=== PATIENT | female | born 1985 | race Caucasian/White ===

== ENCOUNTER 2024-02-22 12:50 | Inpatient (IN) ==
[2024-02-22] MEDS ORDERED: LIDOCAINE 1% LOCAL 20 ML VIAL INFIL PRN (16:58)
[2024-02-22] MEDS ORDERED: PENICILLIN GK 6 MU in SODIUM CHLORIDE 0.9% 250 ML IV STA (16:58)
[2024-02-22] MEDS ORDERED: VANCOMYCIN CONSULT ACTIVE PRN (17:17)
[2024-02-22 17:24] LABS: Hematocrit (blood only) 34.9 % (37.0-47.0); Hemoglobin 11.6 g/dl (12.0-16.0); Mean Corpuscular Hemoglobin 28.4 pg (25.0-34.0); Mean Corpuscular Hgb Conc 33.2 g/dL (32.0-36.0); Mean Corpuscular Volume 85.5 fL (80.0-100.0); Mean Platelet Volume 9.2 fL (9.4-12.4); Platelet Count 265 K/uL (130-400); RDW Coefficient of Variation 13.9 % (11.5-14.5); Red Blood Count 4.08 M/uL (4.20-5.40); White Blood Count 14.35 K/ul (4.8-10.8)
[2024-02-22] MEDS: VANCOMYCIN HCL 1,000 MG/270 ML BAG IV STA (18:23)
--- NOTE | 2024-02-22 18:57 | History & Physical Report ---
Date of Service February 22, 2024 Assessment & Plan (1) Normal labor and delivery: Plan: Spontaneous labor, will manage expectantly. Epidural if requested. Admission and Anticipated Discharge Date Admission Date: February 22, 2024 History of Present Illness Primary Care Provider: [facility] Delayed documentation. 38yo at 40w3d with SIUP, admitted with contractions. Patient's c/b AMA, nulliparity, Rh negative, GBS positive. No LOF, no VB, good FM. Patient has a childhood allergy to penicillin which "may have been a rash," per patient's mom in the room. She mentions they are not even sure if the allergy was to penicillin or other drugs given concurrently. They were therefore advised that PCN is the recommended treatment for her GBS. They decline to accept any PCN, therefore vancomycin will be utilized. Allergies Allergy/AdvReac Type Severity Reaction Status Date / Time latex Allergy Mild Rash Verified 02/22/24 14:35 Penicillins Allergy Mild Rash Verified 02/22/24 14:34 Home Medications Medication Instructions Recorded Confirmed Type breast pump #1 ea 01/02/24 02/21/24 Rx aspirin 81 mg capsule 81 mg PO DAILY 02/22/24 02/22/24 History cetirizine 10 mg tablet (Zyrtec) 10 mg PO DAILY 02/22/24 02/22/24 History vits no.124-ferrous fum 1 tab PO DAILY 02/22/24 02/22/24 History 27 mg iron-folic acid 800 mcg tablet ( Vitamin) Patient History Medical History (Updated 02/22/24 @ 18:57 by Terra Welch MD) Chicken pox HSV-1 (herpes simplex virus 1) infection Oral Seasonal allergies Surgical History S/P wisdom tooth extraction Family History Grandmother (Maternal) Colorectal cancer Uncle Lymphoma Father Hypertension Denies family history of Ovarian cancer Breast cancer Social History Smoking Status: Never smoker Do You Dip or Chew Tobacco: No; Hx Alcohol Use: No Hx Substance Use: No Preferred Language: Vietnamese Communication Ability: Effective Matcher Offbearer Required: No Beliefs That Will Affect Care: None marital status: marital status details: Abhay Kendall (29) [phone] Current Living Situation: Spouse Current Living Situation Comment: Lives with current occupational status: employed current occupation: wagon driver part-time Feels Safe at Home: Yes Physical Exam Genitourinary: /-2 with intact bulging membranes, vtx presentation. FHT Cat 1 [place] Q3m Results & Data Vital Signs (Past 12 Hours) Vital Signs Temp Pulse Resp BP 02/22/24 16:59 97.9 F 82 18 110/69 02/22/24 15:26 85 131/77 02/22/24 15:16 18 02/22/24 15:16 97.9 F 18 02/22/24 13:26 98.2 F 16 02/22/24 13:17 93 H 111/68 Coding Level of Care Code None Diagnoses Normal labor and delivery O80
[2024-02-22] MEDS: SODIUM CHLORIDE 0.9% 1,000 ML IV SCH (19:06)
[2024-02-22] MEDS ORDERED: fentANYL 2 MCG/ML BUPIVacaine 0.125%-NSS 100ML BAG EPI PRN (19:21)
[2024-02-22] MEDS ORDERED: ONDANSETRON INJ 2 MG/ML 2 ML VIAL IV PRN (19:21)
[2024-02-22] MEDS ORDERED: LIDOCAINE 2%/EPINEPHRINE 1:200,000 20 ML PF EPI STA (19:21)
[2024-02-22] MEDS ORDERED: LIDOCAINE 2% MPF LOCAL 5 ML VIAL EPI PRN (19:21)
[2024-02-22] MEDS ORDERED: BUPIVACAINE 0.25% PF 30 ML VIAL EPI STA (19:21)
[2024-02-22] MEDS ORDERED: fentaNYL citrate PF 100 MCG/2 ML VIAL EPI STA (19:21)
[2024-02-22] MEDS ORDERED: fentaNYL citrate PF 100 MCG/2 ML VIAL EPI PRN (19:21)
[2024-02-22] MEDS ORDERED: BUPIVACAINE 0.25% PF 30 ML VIAL EPI PRN (19:21)
[2024-02-22] MEDS ORDERED: ROPIVACAINE 0.5% PF 5 MG/ML 20 ML VIAL EPI PRN (19:21)
[2024-02-22] MEDS ORDERED: diphenhydrAMINE 50 MG/ML VIAL IV PRN (19:21)
[2024-02-22] MEDS ORDERED: SODIUM CHLORIDE 0.9% PF INJ 10 ML VIAL EPI PRN (19:21)
[2024-02-22] MEDS ORDERED: SODIUM CHLORIDE 0.9% PF INJ 10 ML VIAL EPI STA (19:21)
[2024-02-22] MEDS ORDERED: ePHEDrine sulfate 50 MG/ML AMP IV PRN (19:21)
[2024-02-22] MEDS ORDERED: NALBUPHINE HCL INJ 10 MG/ML AMP IV PRN (19:21)
--- NOTE | 2024-02-22 19:25 | Anesthesiology Consultation ---
Date of Service February 22, 2024 Assessment & Plan (1) Encounter for pre-operative examination: Chart Review Chart Review: Patient NOT seen in Pre Admission Testing and Acceptable Risk for Labor Epidural Consults Requested none History Height/Weight Height: 5 ft 6 in Weight: 80.286 kg Allergies Allergy/AdvReac Type Severity Reaction Status Date / Time latex Allergy Mild Rash Verified 02/22/24 14:35 Penicillins Allergy Mild Rash Verified 02/22/24 14:34 Medications Home Medications Medication Instructions Recorded Confirmed Last Taken breast pump #1 ea 01/02/24 02/21/24 Unknown aspirin 81 mg capsule 81 mg PO DAILY 02/22/24 02/22/24 02/21/24 cetirizine 10 mg tablet (Zyrtec) 10 mg PO DAILY 02/22/24 02/22/24 02/21/24 vits no.124-ferrous fum 1 tab PO DAILY 02/22/24 02/22/24 02/22/24 27 mg iron-folic acid 800 mcg tablet ( Vitamin) Active Medications Generic Name Dose Route Start Last Admin Trade Name Freq PRN Reason Stop Dose Admin Sodium Chloride 1,000 mls @ 80 mls/hr 02/22/24 19:15 02/22/24 19:41 Nss IV 02/23/24 19:14 80 mls/hr .[id number] ROLLY Infusion Past Medical History Medical History Encounter for pre-operative examination Chicken pox HSV-1 (herpes simplex virus 1) infection Oral Seasonal allergies Exercise / Class Metabolic Activity II 4-5 Yardwork/Stairs/Walk up hill Past Family History Family History Grandmother (Maternal) Colorectal cancer Uncle Lymphoma Father Hypertension Denies family history of Ovarian cancer Breast cancer Past Surgical History Surgical History S/P wisdom tooth extraction Past Anesthesia History No Hx of Anesthesia Complications and No Family Hx of Anesthesia Complications History of PONV No Hx of PONV and No Hx of Motion Sickness Social History Smoking Status: Never smoker Do You Dip or Chew Tobacco: No Hx Alcohol Use: No Hx Substance Use: No Physical Exam Vital Signs Last Vital Signs Temp 36.7 C 02/22/24 19:06 Pulse 107 H 02/22/24 19:47 Resp 18 02/22/24 19:06 BP 116/74 02/22/24 19:44 Pulse Ox 94 02/22/24 19:47 Testing Laboratory Results 02/22/24 17:03
--- OUTSIDE RECORDS SUMMARY | 2024-02-22 19:31 | External Medical Summary | Summary of Care ---
Author Name Unknown Organization [facility] Address [address] [place] [address] Phone [phone] Care Team Providers Care Center Medical Director Name Role Phone Simin Osman PA-C Primary Care Provide r Reason for Visit * Reason Onset Date Comments Allergy Serum 02/21/2024 Encounter Details Date Type Department Care Team (Late st Contact Info) Description 02/21/2024 7:30 AM EST Nurse Only Allergy/Immunology [facility] [place] [address] [place] [address] Joan, Nurse Allergy Scenery [address] [place] [address] Allergy Serum Allergies No known active allergiesdocumented as of this encounter (statuses as of 02/21/2024) Medications Fluticasone Propionate 50 MCG/ACT Nasal Suspension Administer 1 [place] into nostril 2 times a day. 15.8 mL 6 1 Active Cetirizine HCl 10 MG Oral Tablet (ZyrTEC) Take 1 Tab by mouth daily. 1 Active 6.75-0.2 MG Oral Tablet Take by mouth. Act azra documented as of this encounter (statuses as of 02/21/2024) Active Problems Problem Noted Date Diagnosed Date Deviated nasal septum 02/05/2020 Allergic rhinitis documented as of this encounter (statuses as of 02/21/2024) Social History Tobacco Use Types Packs/Day Years Used Date Smoking Tobacco: Never Smokeless Tobacco: Never Comments:No passive smoke ex posure Alcohol Use Standard Drinks/Week Comments Never 0 (1 standard drink = 0.6 oz pur e alcohol) AUDIT-C Answer Date Recorded Frequency of Alcohol Consumption Never 11/28/2019 Average Number of Drinks Not on file 020 Frequency of Binge Drinking Not on file 10/2019 Comments Unknown Sex and Gender Information Value Date Recorded Sex Assigned at Not on file Legal Sex Female 9:00 AM EDT Gender Identity Not on file Sexual Orientation Not on file documented as of this encounter Progress Notes * Aster Hampton LPN - 02/21/2024 1:13 PM EST The pt has been properly identified by confirmation of name and date of . AIT serum(s) prepared per Dr Mota's prescription. Aster Hampton LPN 02/21/2024 documented in this encounter Plan of Treatment Upcoming Encounters Date Type Department Care Team (Late st Contact Info) Description 12/19/2024 11:00 AM EDT Office Visit Allergy/Immunology [facility] [place] [address] [facility] [place] [address] Linsey Fierro PA-C [address] [facility] [place] [address] Scheduled Orders Name Type Priority Associated Diagnoses Orde r Schedule [facility] Procedures Routine Allergic rhinitis due to pollen, unspecified seasonality Ordered: 02/21/2024 Health Maintenance Due Date Last Done Comments Diabetes Screening 1987 Depression Screening 1999 HIV Screening 07/12/2002 Hepatitis C Screening 07/12/2005 DTap/Tdap Vaccines (1 - Tdap) 07/12/2006 Hepatitis B Vaccine (1 of 3 - 19+ 3-dose series) 07/12/2006 Pap Smear 07/12/2008 Cervical Cancer Screening 07/12/2017 HPV/Co-Test 07/12/2017 COVID-19 Vaccine ( season) 2023 01/12/2023, 12/03/2021, 06/25/2021, Additional history exists Influenza Vaccine (FLU shot) Completed 11/22/2023, 12/10/2020 HPV (Gardasil) Vaccine Aged Out No lo nger eligible based on patient's age to complete this topic MENINGOCOCCAL (MENACTRA/MENVEO) Aged Out No longer eligible based on patient's age to complete this topic Pneumococcal Vaccine: Pediatrics (0 to 5 Years) and At-Risk Patients (6 to 18 Years and 19+ Years) Aged Out No longer eligib le based on patient's age to complete this topic documented as of this encounter Medical Devices Not on filedocumented as of this encounter Visit Diagnoses Diagnosis Allergic rhinitis due to pollen, unspecified seasonality- Primary documented in this encounter Care Teams Center Medical Director Relationship Specialty Start Date End Date Simin Osman PA-C [address] [place] [address] PCP - General Physician Oil Distributor Tender 11/03/19 documented as of this encounter
[2024-02-22] MEDS: LIDOCAINE 2%/EPINEPHRINE 1:200,000 20 ML PF ONE (19:51)
[2024-02-22] MEDS: BUPIVACAINE 0.25% PF 30 ML VIAL ONE (19:51)
[2024-02-22] MEDS: fentaNYL citrate PF 100 MCG/2 ML VIAL ONE (19:51)
[2024-02-22] MEDS: fentANYL 2 MCG/ML BUPIVacaine 0.125%-NSS 100ML BAG ONE (19:52)
[2024-02-22] MEDS ORDERED: PENICILLIN GK 3 MU in DEXTROSE 5% 100 ML IV PRN (19:58)
[2024-02-22] MEDS: SODIUM CHLORIDE 0.9% PF INJ 10 ML VIAL ONE (20:40)
[2024-02-22] MEDS: ePHEDrine sulfate 50 MG/ML AMP ONE (20:40)
[2024-02-23] MEDS: OXYTOCIN 30 UNITS/NSS 30 UNITS/500 ML BAG IV PRN (00:56)
--- NOTE | 2024-02-23 01:10 | Delivery Summary ---
Vaginal Delivery Summary Date of Service February 23, 2024 Vaginal Delivery Summary DIAGNOSES: 1. Malin intrauterine at 40w5d gestation. 2. Spontaneous onset of labor. 3. Group B Streptococcus Pos, treated with Vanco. PROCEDURE: Spontaneous vaginal delivery and repair of second degre laceration. SURGEON: Terra Welch MD. STAFFING ACCOUNT MANAGER: None. QUANTITATIVE BLOOD LOSS: 353 mL. COMPLICATIONS: None. PLACENTA: Spontaneous and intact with a 3-vessel cord. DISPOSITION: Stable to labor and delivery. DESCRIPTION: The patient pushed well and brought the head to in DOA position. The infant's head was allowed to deliver with contraction force and no further active pushing, with the perineum protected during this time. There was one nuchal cord reduced on the perineum. The shoulders and body delivered without any difficulty, and the infant was placed on the maternal abdomen. It was vigorous and moving all extremities, and making respiratory efforts. The cord was doubly clamped by the MD and then cut by the FOB. The placenta delivered spontaneously and was noted to be intact and with a 3VC. The cervix, vagina and perineum were examined and were found to have a second degree laceration which was repaired in the usual manner with vicryl suture, including two crown stitches to rebuild the perineal body. The fundus was firm and lochia minimal immediately after delivery. [facility] Vaginal Delivery Charge Vaginal Delivery Codes: 06121 global code for the antepartum, delivery, and post-
[2024-02-23] MEDS ORDERED: OXYTOCIN 30 UNITS/NSS 30 UNITS/500 ML BAG IV PRN (02:14)
[2024-02-23] MEDS ORDERED: ACETAMINOPHEN 325 MG TAB PO PRN (02:14)
[2024-02-23] MEDS ORDERED: HYDROCORTISONE ACETATE 25 MG SUPP PR PRN (02:14)
[2024-02-23] MEDS ORDERED: oxyCODONE/ACETAMINOPHEN 5mg/325mg TAB PO PRN (02:14)
[2024-02-23] MEDS: BENZOCAINE 20% SPRY 85 APPLN/85 GM CAN EXT PRN (03:23)
[2024-02-23] MEDS ORDERED: VANCOMYCIN HCL 1,000 MG/270 ML BAG IV PRN (04:17)
[2024-02-23] MEDS: DIPHTHER/TETAN/PERTUS Vaccine (Tdap, Adol/Adult) 0.5mL IM ONE (04:29)
--- NOTE | 2024-02-23 07:48 | Anesthesia Procedure Note ---
Date of Service February 23, 2024 Anesthesia Post Epidural Note Vital Signs Vital Signs: Temp Pulse Resp BP Pulse Ox O2 Del Method 36.9 C 82 16 102/67 98 Room Air 02/23/24 07:25 02/23/24 07:25 02/23/24 07:25 02/23/24 07:25 02/23/24 07:25 02/23/24 07:25 Pain Intensity Bilateral Lower Abdomen: Pain Intensity: 0 Notes Mental Status: alert / awake / arousable and participated in evaluation Nausea / Vomiting: adequately controlled Pain: adequately controlled Airway Patency, RR, SpO2: stable & adequate BP & HR: stable & adequate Hydration State: stable & adequate Neuraxial Anesthesia: was administered and sensory block resolved Anesthetic Complications: no major complications apparent and Pt Satisfied with anesthetic care Epidural: Removed without complications and With tip intact
[2024-02-23] MEDS: DOCUSATE SODIUM 100 MG CAP PO SCH (08:46)
[2024-02-23] MEDS: PRENATAL VITAMIN 1 TAB PO SCH (08:46)
[2024-02-23] MEDS: CETIRIZINE HCL 10 MG TABLET PO SCH (08:46)
[2024-02-23] MEDS: IBUPROFEN 600 MG TAB PO PRN (12:27)
--- NOTE | 2024-02-24 07:35 | Obstetrical Progress Note ---
Date of Service February 24, 2024 Assessment & Plan (1) Encounter for care and examination after delivery: 38 yo PP1 from , doing well -Meeting all pp milestones -O-/rubella immune/, s/p rhogam -f/u 6 weeks for appt, dc home today Subjective Ambulation: ambulating normally Voiding: no voiding problems Passing Gas:: Yes Diet Tolerance:: regular diet Lochia:: Small Feeding Type:: breast feeding Pain well managed with medication Review of Systems Denies fevers, chills, n/v, [place], CP, SOB Physical Exam Constitutional WD/WN, vitals as above no acute distress Respiratory normal respiratory effort, lungs clear to auscultation Cardiovascular RRR, no murmur, no edema Gastrointestinal (Abdomen) Percussion/Palpation: abdomen soft; abdomen nontender fundus firm at umbilicus and NT Musculoskeletal BLE symmetric, nonerythematous, nontender Results & Data Vital Signs (Past 12 Hours) Vital Signs Temp Pulse Resp BP Pulse Ox O2 Del Method 02/23/24 23:20 98.1 F 85 18 110/80 99 Room Air 02/23/24 20:53 98.1 F 89 18 107/68 98 Room Air
[2024-02-24 07:56] LABS: Hematocrit (blood only) 27.6 % (37.0-47.0); Hemoglobin 9.1 g/dl (12.0-16.0); Mean Corpuscular Hemoglobin 28.3 pg (25.0-34.0); Mean Platelet Volume 9.2 fL (9.4-12.4); Platelet Count 237 K/uL (130-400); RDW Coefficient of Variation 14.1 % (11.5-14.5); Red Blood Count 3.21 M/uL (4.20-5.40); White Blood Count 12.39 K/ul (4.8-10.8)
[2024-02-24 08:30] VITALS: BP 117/73; PULSE 84; RESP 16; TEMP 97.5; O2SAT 97
[2024-02-24] MEDS ORDERED: bisacodyL 5 MG TABEC PO SCH (20:00)
[2024-02-25] MEDS ORDERED: bisacodyL 10 MG SUPP PR PRN (02:14)
== END 2024-02-24 12:29 | disposition home or self-care (01) | DRG 807 ==
LOC: OPB 12:50 → 4S1 12:52 → 4E2 02-23 04:18